=== PATIENT | male | born 1995 | race Caucasian/White ===

== ENCOUNTER 2020-06-28 00:40 | Emergency (ER) | payer OTHER ==
[~2020-06-28] VITALS: Ht 167.6 cm; Wt 68.0 kg
--- NOTE | 2020-06-28 01:12 | NUR ---
PT BIBSELF C/O OF MIDEPIGASTRIC PAIN. PT AAOX4, BUT IS UNDER THE INFLUENCE. PT STATES HIS LAST DRINK WAS "7 HOURS AGO". PT BREATHING EVENLY AND UNLABORED. SKIN IS WARM, DRY, AND INTACT. RT AC 20G IV INITIATED. BLOOD DRAWN AND SENT TO LAB. PT DENIES N/V. PT CHANGED INTO GOWN AND ATTACHED TO THE MONITOR AND POX. PT GIVEN A BLANKET AND CALL LIGHT WITHIN REACH.
[2020-06-28] MEDS ORDERED: ONDANSETRON HCL/PF 4 MG/2 ML VIAL ONE (01:25)
[2020-06-28] MEDS ORDERED: ONDANSETRON HCL/PF 4 MG/2 ML VIAL IVP ONE (01:30)
[2020-06-28] MEDS ORDERED: MORPHINE SULFATE INJ 2 MG/ML DISP.SYRIN IV ONE (01:30)
[2020-06-28] MEDS ORDERED: IV NS 0.9% 1,000 ML BAG IV ONE (01:30)
--- NOTE | 2020-06-28 01:43 | NUR ---
back from ct
[2020-06-28 02:01] LABS: BASOPHILS # (AUTO) 0.1 /CMM (0.0-0.2); BASOPHILS % (AUTO) 1.1 % (0.0-2.0); EOSINOPHILS % (AUTO) 0.7 % (0.0-6.0); HEMATOCRIT 43 % (39-51); HEMOGLOBIN 14.5 g/dL (13.5-17.5); LYMPHOCYTES # (AUTO) 2.4 /CMM (0.8-4.8); LYMPHOCYTES % (AUTO) 36.5 % (20.0-44.0); MEAN CORPUSCULAR HGB CONC 34 g/dl (31.0-36.0); MEAN CORPUSCULAR VOLUME 92 fL (80-96); MONOCYTES # (AUTO) 0.6 /CMM (0.1-1.30); MONOCYTES % (AUTO) 9.5 % (2.0-12.0); NEUTROPHILS # (AUTO) 3.4 /CMM (1.8-8.9); NEUTROPHILS % (AUTO) 52.2 % (43.0-81.0); PLATELET COUNT (AUTO) 278 /CMM (150-450); RED BLOOD CELL COUNT(AUTO) 4.69 MIL/uL (4.5-6.0); WHITE BLOOD COUNT (AUTO) 6.5 K/uL (4.3-11.0)
[2020-06-28 02:07] LABS: CALCIUM, SERUM 8.7 mg/dL (8.5-10.1); CREATININE 0.7 mg/dL (0.6-1.3); POTASSIUM 3.8 mmol/L (3.5-5.1)
[2020-06-28 02:14] LABS: ALBUMIN 4.3 g/dL (3.4-5.0); BILIRUBIN,DIRECT 0.1 mg/dL (0.0-0.2); BILIRUBIN,TOTAL 0.2 mg/dL (0.2-1.0); TOTAL PROTEIN, SERUM 8.4 g/dL (6.4-8.2)
--- NOTE | 2020-06-28 02:40 | NUR ---
urine sent to lab
[2020-06-28 02:58] LABS: BILIRUBIN,URINE NEGATIVE (NEGATIVE); COLOR,URINE YELLOW (YELLOW); LEUKOCYTE ESTERASE ,URINE NEGATIVE (NEGATIVE); NITRITE, URINE NEGATIVE (NEGATIVE); PROTEIN,URINE NEGATIVE (NEGATIVE); UGLUCOSE NEGATIVE (NEGATIVE); UROBILINOGEN,URINE 0.2 EU/dL (0.2)
[2020-06-28] MEDS ORDERED: PANT40TA2 PO (03:42)
[2020-06-28 03:49] VITALS: BP 117/58
--- NOTE | 2020-06-28 03:49 | NUR ---
Patient discharged to home in stable condition. Written and verbal after care instructions given. Patient verbalizes understanding of instruction. IV removed. Catheter intact and site benign. Pressure and 4x4 applied to site. No bleeding noted. Pt ambulatory with a steady gait
== END 2020-06-28 03:49 | disposition home or self-care (01) ==
LOC: ER 00:40
DX: K29.20 Alcoholic gastritis without bleeding (principal); F10.10 Alcohol abuse, uncomplicated; Y90.9 Presence of alcohol in blood, level not specified
CPT/HCPCS: 36415; 74176; 80048; 80076; 81003; 83690; 85025; 96360; 99284; J7030; J2405

== ENCOUNTER 2020-09-12 18:18 | Emergency (ER) | payer OTHER ==
[~2020-09-12] VITALS: Ht 167.6 cm; Wt 72.6 kg
[~2020-09-12 18:18] MED LIST: PANT40TA2 PO
--- NOTE | 2020-09-12 18:25 | NUR ---
RANDY FROM STREETS, FOUND PASS OUT W/ EMPTY ALCOHOL BOTTLES, BG [employer]. PATIENT NOTED WITH RIGHT HAND SWELLING AND ABRASION. DENIES PAIN. IN ROOM AIR AND DENIES SOB. RESPIRATION REGULAR AND UNLABORED. WILL CONTINUE TO MONITOR THE PATIENT.
[2020-09-12] MEDS ORDERED: THIAMINE HCL 100 MG TABLET PO ONE (18:30)
[2020-09-12] MEDS ORDERED: FOLIC ACID 1 MG TABLET PO ONE (18:30)
[2020-09-12] MEDS ORDERED: IV NS 0.9% 1,000 ML BAG IV ONE (18:30)
[2020-09-12] MEDS ORDERED: ONDANSETRON HCL/PF 4 MG/2 ML VIAL IV ONE (18:30)
[2020-09-12] MEDS ORDERED: ONDANSETRON HCL/PF 4 MG/2 ML VIAL ONE (18:39)
[2020-09-12] MEDS ORDERED: FOLIC ACID 1 MG TABLET ONE (18:39)
[2020-09-12] MEDS ORDERED: THIAMINE HCL 100 MG TABLET ONE (18:39)
[2020-09-12 19:14] LABS: BILIRUBIN,URINE Negative (NEGATIVE); COLOR,URINE YELLOW (YELLOW); LEUKOCYTE ESTERASE ,URINE Negative (NEGATIVE); NITRITE, URINE Negative (NEGATIVE); PROTEIN,URINE Negative (NEGATIVE); UGLUCOSE Negative (NEGATIVE); UROBILINOGEN,URINE 0.2 EU/dL (0.2)
[2020-09-12 19:25] VITALS: BP 121/76
--- NOTE | 2020-09-12 19:25 | NUR ---
Patient discharged to home in stable condition. Written and verbal after care instructions given. Patient verbalizes understanding of instruction. The patient left ER in stable condition.
[2020-09-12] MEDS ORDERED: TDAP [DIPH/PERTUSSIS/TET] 0.5 ML VIAL IM ONE (19:30)
[2020-09-12 19:33] LABS: BASOPHILS # (AUTO) 0.1 /CMM (0.0-0.2); EOSINOPHILS % (AUTO) 1.4 % (0.0-6.0); HEMATOCRIT 45 % (39-51); LYMPHOCYTES # (AUTO) 2.5 /CMM (0.8-4.8); LYMPHOCYTES % (AUTO) 51.7 % (20.0-44.0); MEAN CORPUSCULAR HGB CONC 33 g/dl (31.0-36.0); MEAN CORPUSCULAR VOLUME 95 fL (80-96); MONOCYTES # (AUTO) 0.5 /CMM (0.1-1.30); MONOCYTES % (AUTO) 10.2 % (2.0-12.0); NEUTROPHILS # (AUTO) 1.8 /CMM (1.8-8.9); NEUTROPHILS % (AUTO) 35.7 % (43.0-81.0); PLATELET COUNT (AUTO) 286 /CMM (150-450); RED BLOOD CELL COUNT(AUTO) 4.77 MIL/uL (4.5-6.0); WHITE BLOOD COUNT (AUTO) 4.9 K/uL (4.3-11.0)
[2020-09-12 19:45] LABS: CARBON DIOXIDE 23 mmol/L (21-32); CHLORIDE 106 mmol/L (98-107); CREATININE 0.8 mg/dL (0.6-1.3); GLUCOSE 91 mg/dL (74-106); POTASSIUM 3.8 mmol/L (3.5-5.1); SODIUM SERUM 143 mmol/L (136-145); UREA NITROGEN, BLOOD 8 mg/dL (7-18)
[2020-09-12 19:51] LABS: CALCIUM, SERUM 8.3 mg/dL (8.5-10.1)
[2020-09-12 19:52] LABS: ALANINE AMINOTRANSFERASE 107 U/L (12-78); ALBUMIN 4.3 g/dL (3.4-5.0); ALCOHOL, BLOOD 351 mg/dL (0-0); ALKALINE PHOSPHATASE 83 U/L (46-116); ASPARTATE AMINOTRANSFERASE 50 U/L (15-37); BILIRUBIN,DIRECT 0.1 mg/dL (0.0-0.2); BILIRUBIN,TOTAL 0.1 mg/dL (0.2-1.0); TOTAL PROTEIN, SERUM 8.1 g/dL (6.4-8.2)
[2020-09-12 19:53] LABS: ACETAMINOPHEN < 2 ug/ml (10-30)
== END 2020-09-12 19:25 | disposition home or self-care (01) ==
LOC: ER 18:25
DX: S60.511A Abrasion of right hand, initial encounter (principal); F10.129 Alcohol abuse with intoxication, unspecified; Y90.8 Blood alcohol level of 240 mg/100 ml or more; Z59.0 Homelessness; Z79.899 Other long term (current) drug therapy; X58.XXXA Exposure to other specified factors, initial encounter; Y93.89 Activity, other specified; Y92.89 Other specified places as the place of occurrence of the external cause; Y99.8 Other external cause status
CPT/HCPCS: 36415; 73130; 80048; 80076; 80299; 80307; 80320 ×2; 81003; 85025; 96361; 96374; 99284; J2405; J7030; G0480

== ENCOUNTER 2020-09-15 23:33 | Emergency (ER) | payer OTHER ==
[~2020-09-15] VITALS: Ht 162.6 cm; Wt 74.8 kg
[2020-09-16] MEDS ORDERED: MAG HYDROX/AL HYDROX/SIMETH 30 ML UDC PO ONE (00:30)
[2020-09-16] MEDS ORDERED: LIDOCAINE VISCOUS 2% UD 15 ML UDC MM ONE (00:30)
[2020-09-16] MEDS ORDERED: MAG HYDROX/AL HYDROX/SIMETH 30 ML UDC ONE (00:42)
[2020-09-16] MEDS ORDERED: LIDOCAINE VISCOUS 2% UD 15 ML UDC ONE (00:43)
--- NOTE | 2020-09-16 00:54 | NUR ---
PATIENT COME IN, STATED HE DRANK TO MUCH VODKA, NICARAGUAN SPEAKING. PATIENT STABLE ON ROOM AIR. CARDIAC MONTIOR AND POX CONNECTED. PATIENT IN NO ACUTE DISTRESS. WILL CONTINUE TO MONITOR.
[2020-09-16 00:55] VITALS: BP 127/70
--- NOTE | 2020-09-16 00:56 | NUR ---
Patient discharged to home in stable condition. Written and verbal after care instructions given. Patient verbalizes understanding of instruction. ambulatory with a steady gait.
== END 2020-09-16 00:56 | disposition home or self-care (01) ==
LOC: ER 23:37
DX: K29.20 Alcoholic gastritis without bleeding (principal); F10.10 Alcohol abuse, uncomplicated; Z79.899 Other long term (current) drug therapy; Y90.9 Presence of alcohol in blood, level not specified